=== PATIENT | male | born 1955 | race Hispanic/Latino ===

== ENCOUNTER → 2018-06-29 | Outpatient (CLI) | payer OTHER | END | disposition home or self-care (01) | LOC: SHCH 12:38 | PROVIDERS: ATTEND Internal Medicine Cardiovascular Disease | DX: I51.7 Cardiomegaly (principal); I35.8 Other nonrheumatic aortic valve disorders; I25.5 Ischemic cardiomyopathy | CPT/HCPCS: 93306 ==

== ENCOUNTER → 2024-07-01 | Outpatient (CLI) | payer OTHER, MEDICARE | END | disposition home or self-care (01) | LOC: SHCH 11:02 | PROVIDERS: ATTEND Internal Medicine Cardiovascular Disease | DX: I25.5 Ischemic cardiomyopathy (principal) | CPT/HCPCS: 93306 ==

== ENCOUNTER → 2025-01-06 | Outpatient (CLI) | payer OTHER, MEDICAID ==
[2025-01-06] MEDS: REGADENOSON 0.4 MG/5 ML PF SYG IVP ONE (09:32)
== END | disposition home or self-care (01) ==
LOC: RAH 08:27
PROVIDERS: ATTEND Internal Medicine Cardiovascular Disease
DX: I25.10 Atherosclerotic heart disease of native coronary artery without angina pectoris (principal)
CPT/HCPCS: 78452; 93017; J2785; A9500 ×2

== ENCOUNTER 2025-02-04 06:57 | Day surgery (SDC) | payer OTHER, MEDICAID ==
[2025-01-31 10:11] LABS: IMMATURE GRANULOCYTE ABSOLUTE 0.04 K/uL (0-1); NUCLEATED RED BLOOD CELLS 0.0 % (0.0-0.19); PLATELET COUNT (AUTO) 177 K/uL (130-400); RED BLOOD CELL COUNT(AUTO) 4.14 MIL/uL (4.50-6.20); RED CELL DISTRIBUTION WIDTH 12.2 % (11.0-15.5); WHITE BLOOD COUNT (AUTO) 9.1 K/uL (4.8-10.8)
--- NOTE | 2025-01-31 10:25 | EKG ---
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
[2025-01-31 10:27] VITALS: BP 84/53; PULSE 81; RESP 18; TEMP 97.3
[2025-01-31 10:29] LABS: INR 1.03 (0.85-1.15)
[2025-01-31 10:47] LABS: CREATININE 1.2 mg/dL (0.5-1.3); GLOMERULAR FILTR. RATE CALC 66.0 mL/min (>90); GLUCOSE,RANDOM 100.0 mg/dL (70-105); SODIUM SERUM 139.0 mmol/L (136-145); UREA NITROGEN, BLOOD 29.0 mg/dL (7-18)
[2025-01-31 10:59] LABS: APPEARANCE,URINE CLEAR (CLEAR); GLUCOSE, URINE (UA) >=1000 mg/dL (NEGATIVE); LEUKOCYTE ESTERASE ,URINE NEGATIVE Leu/uL (NEGATIVE); NITRATE,URINE NEGATIVE (NEGATIVE); OCCULT BLOOD,URINE NEGATIVE (NEGATIVE)
[2025-01-31 11:00] LABS: ADD UA MICROSCOPIC YES
--- NOTE | 2025-01-31 11:07 | HMCIMG ---
CHEST 1VW REASON: PRE OP COMPARISON: Prior study from 09/27/2009 is available FINDINGS: Single view of the chest was obtained. Lungs are clear. Heart size is normal. Patient is status post median sternotomy There is no pulmonary vascular congestion. Mediastinum and bony thorax appear unremarkable. IMPRESSION: 1. Status post median sternotomy 2. No evidence of airspace consolidation or pulmonary venous congestion.
[~2025-02-04] VITALS: Ht 177.8 cm; Wt 67.4 kg
[2025-02-04] VITALS (11 sets, daily range): BP systolic 92–134; BP diastolic 51–69; PULSE 72–91; RESP 10–15; TEMP 97.4–97.7
[~2025-02-04 06:57] MED LIST: ASPI-1197 PO; CARV3.12 PO; DAPA10TA PO; LEVO5TAB13 PO; ROSU10TA98 PO; SACU1TAB PO; SITA1TBM4 PO; TAMS-55 PO
[2025-02-04] MEDS ORDERED: IOHEXOL 350 MG/ML 100ML INFUS..BTL IV ONE ×2 (08:47→11:17)
[2025-02-04] MEDS ORDERED: LIDOCAINE HCL 400MG/20ML VIAL ONE (08:47)
[2025-02-04] MEDS ORDERED: HEParin-NS 1,000 UNIT/500 ML 1,000 ML IV ONE (08:47)
[2025-02-04] MEDS ORDERED: NITROGLYCERIN 50MG VIAL ONE (08:47)
[2025-02-04] MEDS ORDERED: IOHEXOL-350 50ML VIAL IV ONE (08:53)
[2025-02-04] MEDS ORDERED: MIDAZOLAM HCL 1 MG/ML 2ML VIAL ONE ×2 (09:04→11:14)
[2025-02-04] MEDS ORDERED: BIVALIRUDIN 250 MG/VIAL IV ONE ×2 (10:49→11:19)
[2025-02-04] MEDS ORDERED: PRASUGREL HCL 10 MG TABLET ONE ×2 (10:51→10:52)
[2025-02-04] MEDS ORDERED: ASPIRIN 325MG EC TAB PO ONE (10:53)
[2025-02-04] MEDS ORDERED: HEParin-NS 1,000 UNIT/500 ML 500 ML IV ONE ×2 (10:58→11:46)
[2025-02-04] MEDS ORDERED: DEXTROSE 50%-WATER 50 ML DISP.SYRIN IV PRN (13:00)
[2025-02-04] MEDS ORDERED: 0.9%NACL 1000ML 1,000 ML IV SCH (13:00)
--- NOTE | 2025-02-04 13:12 | PRN ---
DATE OF PROCEDURE: 02/04/2025 PROCEDURE PERFORMED: LEFT HEART CATHETERIZATION, LEFT VENTRICULOGRAM, LEFT AND RIGHT SELECTIVE CORONARY ANGIOGRAM, INJECTION OF SVG TO THE D1 (OCCLUDED), INJECTION OF SVG TO THE OM2 (OCCLUDED), INJECTION OF SVG SEQUENTIALLY TO THE PDA AND PLVB (OCCLUDED), INJECTION OF PADILLA GRAFT TO THE LAD (WIDELY PATENT), PLAIN OLD BALLOON ANGIOPLASTY (POBA) TO THE MID AND DISTAL 99% DIFFUSELY DISEASED LCX (STENT WOULD NOT CROSS DESPITE XB 3.5 GUIDE CATHETER, GUIDELINER GUIDE EXTENSION, AND AGGRESSIVE DEEP SEATING OF THE XB 3.5 GUIDE). ROBOTYPE OPERATOR: Carlitos Li MD, [facility] INDICATION: Abnormal Lexiscan Cardiolite stress test demonstrating a large fixed inferior and inferoapical defect with border zone ischemia. PROCEDURE NOTE: After informed consent was obtained the patient was prepped and draped in the usual sterile fashion. A 6 [place]ian arterial sheath was inserted in the right femoral artery using a micropuncture technique with ultrasound guidance, with a front wall, first pass puncture. This was performed after fluoroscopic identification of bony landmarks to facilitate a more accurate puncture of the right common femoral artery. The arterial sheath was aspirated and flushed. A 6 [place] Helenian pigtail catheter was then advanced over a J-tipped guidewire to the ascending aorta and was prolapsed into the left ventricle. The catheter was aspirated and flushed and pressure measurements were obtained. A left ventriculogram was then performed in a 30 DAVILA projection. A pullback procedure was then performed, and this catheter was removed over a J-tipped guidewire. A 6F JL-4 was then advanced to the ascending aorta over a J-tipped guidewire, was aspirated and flushed, and was used for selective left coronary angiograms in multiple obliquities. A JR-4 was advanced in a similar fashion to the ascending aorta over a J-tipped guidewire and was used for selective right coronary angiograms in multiple obliquities with findings as outlined below. The JR4 was also used for injection of the SVG is x3 (SVG-D1, SVG-OM2, sequential XIH-KVZ-CBOR), and for injection of the PAIDLLA-LAD. PERCUTANEOUS CORONARY INTERVENTION: A six [place] Helenian XB AR guide catheter provided adequate support. A GuideLiner guide home economist was advanced into the mid left circumflex. A 300 Confianza pro 12 g wire traversed the recanalized AIRCRAFT TECHNICIAN in the mid left circumflex with mild difficulty. An over the wire 1.5 by 20 mm sprinter balloon was advanced to the distal left circumflex and upon inflation between 10 and 12 atmospheres ruptured. A 2nd 1.5 x 20 mm sprinter balloon was then advanced and dilated the distal circumflex and was withdrawn and dilated throughout the mid left circumflex. Subsequently a 2.0 by 20 mm NC Euphora balloon was advanced with difficulty to the distal circumflex and was inflated but would not advanced into the posterolateral ventricular branch due to plaquing and calcification. Numerous inflations with a 2.0 by 20 NC Euphora were completed followed by an attempt to cross the mid left circumflex with a 2.0 by 30 mm KALEIGH FRONTIER stent. This stent would not cross despite the guide home economist and supportive guide. The final result with balloon angioplasty was excellent with a 40% diffuse stenosis without significant edge dissection. A right common femoral angiogram was performed to assess suitability for Perclose suture closure and the Perclose device was deployed in standard fashion. Perclose suture closure was successful without bleeding or hematoma. The patient tolerated the procedure well and was returned to the holding area in stable condition. FINDINGS: LEFT HEART HEMODYNAMICS: The patient's LVEDP prior to LV-gram was 8 mm of mercury and after LV-gram was 11 mm of mercury. There was no AV gradient on pullback. LEFT VENTRICULOGRAM: A left ventriculogram in a 30 degree DAVILA projection demonstrated extensive anteroapical, apical, and inferoapical severe hypokinesis with an LVEF estimate of 45%. There was no angiographic MR. CORONARY ANGIOGRAM: LEFT MAIN: The left main was normal. LEFT ANTERIOR DESCENDING: The LAD had a 40% proximal stenosis and a 95% proximal to mid stenosis with the ongoing mid to distal LAD filling well via a widely patent PADILLA-LAD. The 1st and 2nd diagonals were small and had 80% ostial stenoses. The SVG-D1 was chronically occluded. LEFT CIRCUMFLEX: The LCX was large and dominant. There was 40% proximal tubular stenosis in the left circumflex followed by diffuse 99% mid to distal left circumflex stenosis with the appearance of possible recanalized chronic occlusion. The OM1 was moderate and had a 50% ostial stenosis. The OM2 was small and had a 50% ostial stenosis. The SVG-OM2 was chronically occluded. RAMUS INTERMEDIATE BRANCH: There was no ramus intermediate branch. RIGHT CORONARY ARTERY: The RCA was small and nondominant with 60% tandem proximal and mid stenoses. A tiny acute marginal branch had a 99% stenosis. IMPRESSION: Large inferoapical fixed defect with peripheral zone ischemia. Severe, diabetic, three-vessel CAD. Progression of graft disease with 4/5 grafts occluded. Occluded SVG-D1; occluded SVG-OM2; occluded sequential SVG-PDA-PL VB. Diffuse 99% mid LCX disease with the appearance of recanalized AIRCRAFT TECHNICIAN. Successful plain old balloon angioplasty (POBA) to the mid to distal LCX. Inability to advance stent through calcific disease despite guide home economist and supportive XB 3.5 guide. If restenosis recurs with symptomatic angina a repeat attempt can be made with a yasmany wire, seven St Helenian system, guide extension, and the XB 3.5 guide. RECOMMENDATION: Routine post PCI care with dual antiplatelet therapy for 6-12 months. COMPLICATIONS OF PROCEDURE: None, the patient tolerated the procedure well and was returned to his room in stable condition. HEMOSTASIS: Perclose suture closure successful without bleeding or hematoma. ESTIMATED BLOOD LOSS: Less than 10 mL. CONTRAST TOTAL: 245 mL.. CARLITOS LI MD Feb 04, 2025 13:12
--- NOTE | 2025-02-04 15:00 | NUR ---
Bowman catheter removed at this time. 780ml in urine output.
== END 2025-02-04 17:50 | disposition home or self-care (01) ==
LOC: DAH 06:57
PROVIDERS: ATTEND Internal Medicine Cardiovascular Disease
DX: R94.39 Abnormal result of other cardiovascular function study (principal); I25.118 Atherosclerotic heart disease of native coronary artery with other forms of angina pectoris; I25.708 Atherosclerosis of coronary artery bypass graft(s), unspecified, with other forms of angina pectoris; R06.00 Dyspnea, unspecified; I25.82 Chronic total occlusion of coronary artery; Z79.01 Long term (current) use of anticoagulants; I25.5 Ischemic cardiomyopathy; E78.2 Mixed hyperlipidemia; E11.51 Type 2 diabetes mellitus with diabetic peripheral angiopathy without gangrene; Z79.84 Long term (current) use of oral hypoglycemic drugs; Z90.49 Acquired absence of other specified parts of digestive tract; Z95.5 Presence of coronary angioplasty implant and graft; Z79.82 Long term (current) use of aspirin; Z79.899 Other long term (current) drug therapy
CPT/HCPCS: 80048; 83880; 85025; 85610; 85730; 81001; 36415; 71045; 93005; 92943; 93459; 99156; 99157 ×6; A4344; C1894 ×3; C1769 ×2; C1760; C1887 ×2; Q9965 ×3; C1725 ×3; J3010 ×2; J3490 ×2; J2250 ×2; J1644 ×3; J0583 ×2; Q9967 ×3; A4215; A4222; A4221; A4663; A4216; A4606; A4223 ×3; 92920; 96360; 96361; C1874